=== PATIENT | male | born 1960 | race Caucasian/White ===

== ENCOUNTER 2016-05-15 18:08 | Emergency (ER) | payer MEDICAID ==
[2016-05-15 18:25] VITALS: TEMP 98.4; O2SAT 94
--- NOTE | 2016-05-15 21:23 | UCPHY ---
H & P HPI/ROS: CHIEF COMPLAINT: HISTORY OF PRESENT ILLNESS: REVIEW OF SYSTEMS: A ten point review of systems was performed and is negative with the exception of the items mentioned in the HPI. - Personal History Current Tetanus/Diphtheria Vaccine: Yes Current Tetanus Diphtheria and Acellular Pertussis (TDAP): Yes Tetanus Vaccine Date: < 10 YEARS - Medical/Surgical History Hx Asthma: Yes Hx Chronic Respiratory Disease: Yes Hx Diabetes: No Hx Cardiac Disease: No Hx Renal Disease: No Hx Cirrhosis: No Hx Alcoholism: No Hx HIV/AIDS: No Hx Splenectomy or Spleen Trauma: No Other PMH: COPD, Emphysema, Asthma - Social History Smoking Status: Current every day smoker - Physical Exam Exam: General Appearance: Alert. Vital signs reviewed. Eyes: Pupils equal and round, no conjunctival injection, no discharge. Anicteric. ENT, Mouth: Mucous membranes are moist, no oropharyngeal erythema or edema. Neck: No lymphadenopathy, supple. Respiratory: Lungs are clear to auscultation; no wheezes, rales, or rhonchi. Cardiovascular: Regular rate and rhythm; no murmur, rub, or gallop. Gastrointestinal: Abdomen is soft and nontender, no masses or organomegaly, bowel sounds normal. Skin: Warm and dry, no rashes on exposed skin, normal color. Back: Nontender to palpation over the thoracolumbar spine. No CVAT. Extremities: No lower extremity edema, no calf tenderness or swelling. Neurological: Alert and oriented. Moving all four extremities easily and equally. Cranial nerves II through XII are examined and are intact (visual acuity not tested). Strength is 5 over 5 bilaterally with testing of all major motor groups. Sensation is intact to light touch over all 4 extremities. Deep tendon reflexes are 2+ in the biceps and knees bilaterally. Gait is normal. [id number] is performed accurately. Psychiatric: Normal affect. Constitutional: Initial Vital Signs Temperature (C) 36.9 C 05/15/16 18:23 Heart Rate 85 05/15/16 18:23 Respiratory Rate 14 05/15/16 18:23 Blood Pressure 145/86 H 05/15/16 18:23 O2 Sat (%) 94 05/15/16 18:23 O2 Delivery Mode Room Air Allergies/Adverse Reactions: Penicillins Allergy (Verified 05/15/16 18:22) Home Medications: Medication Instructions Recorded Albuterol 03/27/14 Mucinex 03/27/14 Departure - Departure Disposition: Home, Routine, Self-Care Clinical Impression: Corneal abrasion Condition: Good Instructions: Corneal Abrasion (ED) Additional Instructions: Use the antibiotic eye drops as instructed. Call Dr. Salcedo, ophthalmology, tomorrow to set up a follow up appointment. Return to the emergency department if you experience serious worsening of condition. Referrals: Iram Rajput MD [Primary Care Provider] - As per Instructions Ingrid Salcedo MD [Non Staff Provider (MD)] - As per Instructions Physician Review and Approval Statement: 05/15/16 21:23 Portions of this note were transcribed by the medical artist. I, Dr. Ana Orozco, personally performed the history, physical exam, and medical decision- making; and confirmed the accuracy of the information in the transcribed note.
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
[2016-05-15] MEDS ORDERED: FLUORESCEIN SODIUM 1 MG STRIP OP ONE ×2 (21:47→22:09)
[2016-05-15] MEDS ORDERED: PROPARACAINE 0.5% 15 ML OPHT DROP ONE (21:47)
[2016-05-15] MEDS ORDERED: OFLOXACIN 0.3% SOLN PREPACK OPHT.BTL TAKEHOME ONE (22:16)
[2016-05-15 22:45] VITALS: BP 141/82; PULSE 69; RESP 16
== END 2016-05-15 22:44 | disposition home or self-care (01) ==
DX: S05.01XA Injury of conjunctiva and corneal abrasion without foreign body, right eye, initial encounter (principal); J45.909 Unspecified asthma, uncomplicated; J44.9 Chronic obstructive pulmonary disease, unspecified; F17.200 Nicotine dependence, unspecified, uncomplicated; X58.XXXA Exposure to other specified factors, initial encounter; Y93.89 Activity, other specified

== ENCOUNTER → 2016-05-15 | Outpatient (CLI) | payer MEDICAID ==
--- NOTE | 2016-05-15 14:04 | US ---
Sonography Limited to the Right Upper Quadrant of the Abdomen CLINICAL HISTORY: 55-year-old male with chronic viral hepatitis C. ICD 10 Diagnostic Code: B18.2. TECHNIQUE: A curvilinear 5 MHz transducer was used to sonographically evaluate the right upper quadra nt of the abdomen. Color Doppler was used. COMPARISON STUDY: CT scan of the chest, which included the upper abdomen, dated 02/21/2015. FINDINGS: The pancreatic contour is normal. The abdominal aorta is normal in size, and tapers normall y. There are some posterior echogenic atherosclerotic calcifications along the mid abdominal aorta. T he visualized IVC is normal in caliber. The hepatic vein trifurcation is normal. The main portal vein is patent. The liver is normal in size, measuring 17 cm along the right midaxillary line. There is m ild diffuse increased echogenicity, consistent with fatty infiltration (steatosis). There is no discr ete hepatic mass. There is no intra or extrahepatic bile duct dilatation. The common bile duct measur es 6.0 mm, which is upper normal given the patient's age of 55 years. There is no choledocholithiasis . The gallbladder is moderately distended, and there is no evidence of cholelithiasis, sludge, polyp, wall thickening, pericholecystic fluid, or sonographic [place] sign. The right kidney is normal in si ze, shape, and contour, with a normal renal cortical thickness, and no focal solid renal mass or hydr onephrosis, and measures 11.0 x 4.3 x 4.5 cm. The renal cortical thickness is normal, measuring 12 mm . There is a 9 x 5 x 8 mm anechoic cyst in the lateral cortex. There is no ascites or right pleural e ffusion. IMPRESSION: 1. Fatty infiltration of the liver, with no focal hepatic mass. 2. There is a 9 mm benign-appearing right lateral renal cortical cyst.
== END ==
LOC: FIMAGING 09:25
PROVIDERS: ATTEND Internal Medicine
DX: K76.0 Fatty (change of) liver, not elsewhere classified (principal); N28.1 Cyst of kidney, acquired; I70.0 Atherosclerosis of aorta; B18.2 Chronic viral hepatitis C

== ENCOUNTER → 2017-02-03 | Outpatient (CLI) | payer MEDICAID | LOC: FIMAGING 16:57 | PROVIDERS: ATTEND Internal Medicine Critical Care Medicine | DX: J44.9 Chronic obstructive pulmonary disease, unspecified (principal); M85.48 Solitary bone cyst, other site ==